=== PATIENT | male | born 1985 | race Caucasian/White ===

== ENCOUNTER 2024-08-08 16:35 | Emergency (ER) | payer MEDICAID ==
[~2024-08-08] VITALS: Ht 180.3 cm; Wt 91.0 kg
[2024-08-08 16:39] VITALS: TEMP 36.5; O2SAT 98
[2024-08-08] MEDS ORDERED: IBUP-2030 MT (17:55)
[2024-08-08] MEDS: LIDOCAINE 5% PATCH TOP SCH (18:02)
[2024-08-08] MEDS: KETOROLAC 30MG/ML VIAL IM ONE (18:02)
[2024-08-08] MEDS: ACETAMINOPHEN 500MG TABLET PO ONE (18:02)
[2024-08-08 18:10] VITALS: BP 107/76; PULSE 94; RESP 18; O2SAT 100
== END 2024-08-08 19:33 | disposition home or self-care (01) ==
LOC: ER 16:35
DX: S20.211A Contusion of right front wall of thorax, initial encounter (principal); Z55.6 Problems related to health literacy; Y04.0XXA Assault by unarmed brawl or fight, initial encounter; Y93.89 Activity, other specified; Y92.89 Other specified places as the place of occurrence of the external cause; Y99.8 Other external cause status
CPT/HCPCS: 99283; 71101; 96372; J1885